=== PATIENT | male | born 1950 | race Caucasian/White ===

== ENCOUNTER → 2020-01-17 | Outpatient (CLI) | payer OTHER ==
[~2020-01-17] MED LIST: ATEN25TA PO; OXYC-306 PO
[2020-01-17 16:56] LABS: MICROSCOPIC NOT IND
[2020-01-17 16:59] LABS: BASOPHILS % (AUTO) 0 % (0-1); EOSINOPHILS % (AUTO) 3 % (1-7); LYMPHOCYTES % (AUTO) 29 % (22-44); MD NO; MEAN CORPUSCULAR HEMOGLOBIN 29.1 pg (27.5-34.5); MEAN PLATELET VOLUME 8.7 fL (7.4-10.4); MONOCYTES % (AUTO) 9 % (2-9); NEUTROPHILS % (AUTO) 59 % (42-75); PLATELET COUNT 275 x10^3/uL (130-400); RED BLOOD COUNT 5.36 x10^6/uL (4.38-5.82); RED CELL DISTRIBUTION WIDTH 14.3 % (9.4-14.8)
== END | disposition home or self-care (01) ==
LOC: STAR 15:05
PROVIDERS: ATTEND Orthopaedic Surgery
DX: Z01.812 Encounter for preprocedural laboratory examination (principal); Z20.828 Contact with and (suspected) exposure to other viral communicable diseases; M17.11 Unilateral primary osteoarthritis, right knee; I25.2 Old myocardial infarction
CPT/HCPCS: 36415; 81003; 85025; 87081; 87635; 87806; 93005; G0475

== ENCOUNTER 2020-01-21 06:06 | Day surgery (SDC) | payer OTHER ==
[~2020-01-21] VITALS: Ht 195.6 cm; Wt 109.0 kg
[2020-01-21] MEDS ORDERED: FENTANYL PF 250 MCG/5ML ONE (06:47)
[2020-01-21] MEDS ORDERED: KETOROLAC 60 MG/2 ML ONE (06:48)
[2020-01-21] MEDS ORDERED: TRANEXAMIC ACID 100 MG/ML, 10ML ONE (06:48)
[2020-01-21] MEDS ORDERED: morphine SULFATE/PF 1 MG/ML, 10ML ONE (06:49)
[2020-01-21] MEDS ORDERED: SODIUM CHLORIDE 0.9% 50 ML ONE (06:49)
[2020-01-21] MEDS ORDERED: BACITRACIN 50,000 UNIT ONE (06:49)
[2020-01-21] MEDS ORDERED: ROPIvacaine/PF 0.2%, 20 ML ONE (06:49)
[2020-01-21] MEDS ORDERED: VANCOMYCIN PMX 1GM/200ML 200 ML IV ONE (07:00)
[2020-01-21] MEDS ORDERED: LACTATED RINGERS 1,000 ML IV SCH (07:00)
[2020-01-21] MEDS ORDERED: CHLORHEXIDINE 15 ML UDC MM ONE (07:00)
[2020-01-21] MEDS ORDERED: FLU VACCINE PER PHARMACY IM ONE (07:00)
[2020-01-21] MEDS ORDERED: ASPI81TA45 PO (07:23)
[2020-01-21] MEDS ORDERED: PROPOFOL 10 MG/ML, 20ML ONE (07:34)
[2020-01-21] MEDS ORDERED: DEXAMETHASONE 4 MG/ML, 1ML ONE (07:34)
[2020-01-21] MEDS ORDERED: ONDANSETRON 2MG/ML, 2ML ONE (07:34)
[2020-01-21] MEDS ORDERED: GLYCOPYRROLATE 0.2MG/1ML, 5ML ONE (07:34)
[2020-01-21] MEDS ORDERED: VANCOMYCIN PMX 1GM/200ML 200 ML IVPB ONE (08:00)
[2020-01-21] MEDS ORDERED: LORazepam 2 MG/ML, 1ML IVPush PRN (08:00)
[2020-01-21] MEDS ORDERED: ZOLPIDEM 5MG TABLET PO PRN (08:00)
[2020-01-21] MEDS ORDERED: ONDANSETRON 2MG/ML, 2ML IVPush PRN ×2 (08:00→08:30)
[2020-01-21] MEDS ORDERED: ACETAMINOPHEN 325 MG TABLET PO PRN ×2 (08:00→08:30)
[2020-01-21] MEDS ORDERED: morphine SULFATE 10 MG/ML, 1ML IVPush PRN (08:00)
[2020-01-21] MEDS ORDERED: OXYcodone 5 MG/5 ML ORAL.SOL UDC PO PRN (08:30)
[2020-01-21] MEDS ORDERED: hydrALAzine 20 MG/ML, 1ML IV PRN (08:30)
[2020-01-21] MEDS ORDERED: LABETALOL 5MG/ML, 20ML IV PRN (08:30)
[2020-01-21] MEDS ORDERED: FENTANYL PF 100 MCG/2ML ONE ×3 (10:06→10:51)
[2020-01-21] MEDS ORDERED: OXYcodone 5 MG/5 ML ORAL.SOL UDC ONE (10:13)
[2020-01-21] MEDS ORDERED: HYDROmorphone 1 MG/ML, 1ML INJ ONE ×2 (10:13→10:51)
[2020-01-21] MEDS ORDERED: LORazepam 2 MG/ML, 1ML ONE (10:13)
[2020-01-21] MEDS: HYDROmorphone 1 MG/ML, 1ML INJ IVPush PRN ×4 (10:17→11:05)
[2020-01-21] MEDS: FENTANYL PF 100 MCG/2ML IV PRN ×4 (10:21→11:00)
[2020-01-21] MEDS ORDERED: TRANEXAMIC ACID 1,000 MG in SODIUM CHLORIDE 0.9% 100 ML IV ONE (10:57)
[2020-01-21] MEDS ORDERED: LORazepam 2 MG/ML, 1ML IVPush ONE (11:00)
[2020-01-21] MEDS ORDERED: D5%-0.45% NACL 1,000 ML IV SCH (12:00)
[2020-01-21] MEDS ORDERED: DIPHENHYDRAMINE 50 MG CAPSULE PO PRN (12:01)
[2020-01-21 12:25] VITALS: BP 119/80
[2020-01-21] MEDS: LACTATED RINGERS 1,000 ML IV SCH ×2 (12:52→16:34)
[2020-01-21] MEDS ORDERED: CEFAZOLIN PMX 2GM/50ML 50 ML IVPB SCH (15:00)
[2020-01-21] MEDS: OXYcodone/APAP 7.5/325MG TABLET PO PRN ×2 (15:14→20:50)
[2020-01-21] MEDS ORDERED: FLU VACC QS2020-21(6MOS UP)/PF 60MCG/0.5 ML SYR IM ONE (16:00)
[2020-01-21] MEDS ORDERED: ATENOLOL 25 MG TABLET PO SCH (21:00)
[2020-01-21 21:25] VITALS: BP 99/62
[2020-01-22] MEDS ORDERED: VANCOMYCIN PMX 1GM/200ML 200 ML IVPB ONE (07:00)
[2020-01-22] MEDS ORDERED: ASPIRIN 325 MG TABLET EC PO SCH (08:00)
[2020-01-22] MEDS ORDERED: DOCUSATE 100 MG CAPSULE PO SCH (09:00)
== END 2020-01-21 21:45 | disposition home or self-care (01) ==
LOC: OUT 06:06 → 3WST 11:47 → OUT 21:45
PROVIDERS: ATTEND Orthopaedic Surgery
DX: M17.11 Unilateral primary osteoarthritis, right knee (principal); Z23 Encounter for immunization; G89.18 Other acute postprocedural pain; I25.2 Old myocardial infarction; J45.909 Unspecified asthma, uncomplicated; Z79.82 Long term (current) use of aspirin; Z79.899 Other long term (current) drug therapy; Z86.718 Personal history of other venous thrombosis and embolism; Z88.2 Allergy status to sulfonamides
CPT/HCPCS: 27447; 64447; 73564; 90471; 90686; 97162; C1713; C1776; J0690; J1100; J1170; J1885; J2060; J2274; J2405; J2704; J2795; J3010; J3370; J7120; G0378